=== PATIENT | female | born 1965 | race African-American/Black ===

== ENCOUNTER 2018-12-28 15:17 | Emergency (ER) | payer OTHER ==
[2018-12-28 16:01] LABS: ADD MAN DIFF? NO
[2018-12-28 16:05] LABS: WHITE BLOOD COUNT 7.5 10^3/ul (4.8-10.8)
[2018-12-28 16:05] LABS: BASOPHILS % 0.4 % (0.0-2.0); EOSINOPHILS % 0.4 % (0.0-7.0); HEMOGLOBIN 13.3 g/dl (12.0-16.0); LYMPHOCYTES # 2.5 10^3/ul (0.8-2.9); LYMPHOCYTES % 33.9 % (15.0-51.0); MEAN CORPUSCULAR HEMOGLOBIN 31.3 pg (29.0-33.0); MEAN CORPUSCULAR HGB CONC 33.3 g/dl (32.0-37.0); MEAN CORPUSCULAR VOLUME 94.1 fl (82.0-101.0); MEAN PLATELET VOLUME 8.9 fl (7.4-10.4); MONOCYTE # 0.6 10^3/ul (0.3-0.9); MONOCYTES % 8.4 % (0.0-11.0); NEUTROPHIL # 4.2 10^3/ul (1.6-7.5); NEUTROPHILS % 56.8 % (39.0-77.0); PLATELET COUNT 262 10^3/UL (140-415); RED BLOOD COUNT 4.25 10^6/ul (4.20-5.40); RED CELL DISTRIBUTION WIDTH 12.2 % (11.5-14.5)
[2018-12-28] MEDS: DIPHENHYDRAMINE 50 MG INJ IV (16:06)
[2018-12-28] MEDS: METOCLOPRAMIDE 10 MG INJ IV (16:06)
[2018-12-28] MEDS: ONDANSETRON 4 MG INJ IV (16:06)
[2018-12-28] MEDS: SOD CHLORIDE 0.9% 1,000 ML IV ×2 (16:12→18:38)
[2018-12-28 16:26] LABS: ANION GAP 10 (5-13); BLOOD UREA NITROGEN 12 mg/dl (7-20); CALCIUM 9.4 mg/dl (8.4-10.2); CARBON DIOXIDE 27 mmol/L (21-31); CHLORIDE 102 mmol/L (97-110); CREATININE 0.71 mg/dl (0.44-1.00); Estimated GFR > 60 mL/min (>60); GLUCOSE 91 mg/dl (70-220); POTASSIUM 3.5 mmol/L (3.5-5.1); SODIUM 139 mmol/L (135-144)
[2018-12-28 16:37] LABS: TROPONIN-I < 0.012 ng/ml (0.000-0.120)
[2018-12-28 17:53] LABS: ADD UMIC YES; UR ASCORBIC ACID 20 mg/dL (NEGATIVE); UR BACTERIA FEW /HPF (NONE SEEN); UR BILIRUBIN (Dip) NEGATIVE (NEGATIVE); UR BLOOD (Dip) NEGATIVE (NEGATIVE); UR CLARITY CLEAR (CLEAR); UR COLOR YELLOW (YELLOW); UR GLUCOSE (Dip) NEGATIVE (NEGATIVE); UR KETONES (Dip) NEGATIVE (NEGATIVE); UR LEUKOCYTE ESTERASE (Dip) TRACE Leu/ul (NEGATIVE); UR MUCUS FEW /HPF (NONE SEEN); UR NITRITE (Dip) NEGATIVE (NEGATIVE); UR RBC 1 /HPF (0-5); UR SPECIFIC GRAVITY (Dip) 1.012 (1.003-1.030); UR SQUAMOUS EPITHELIAL CELL FEW /HPF (FEW); UR TOTAL PROTEIN (Dip) NEGATIVE (NEGATIVE); UR UROBILINOGEN (Dip) 1+ mg/dL (NEGATIVE); UR WBC 2 /HPF (0-5)
== END 2018-12-28 20:33 | disposition home or self-care (01) ==
LOC: E/R 15:17
DX: R51 Headache (principal); Z87.891 Personal history of nicotine dependence
CPT/HCPCS: 36415; 70450; 80048; 81001; 82962; 84484; 85025; 93005; 96374; 96375; 99285-25

== ENCOUNTER 2018-12-29 13:30 | Inpatient (IN) | payer OTHER ==
[2018-12-29] MEDS: SOD CHLORIDE 0.9% 100 ML (16:18)
[2018-12-29] MEDS: IOHEXOL 100 ML (16:18)
[2018-12-29] MEDS: morphine 4 MG/ML VIAL IV (16:27)
[2018-12-29] MEDS: ONDANSETRON 4 MG INJ IV ×3 (16:27→22:40)
[2018-12-29] MEDS: SOD CHLORIDE 0.9% 1,000 ML IV ×2 (16:27→19:11)
[2018-12-29 16:35] LABS: ADD MAN DIFF? NO
[2018-12-29 16:41] LABS: WHITE BLOOD COUNT 7.5 10^3/ul (4.8-10.8)
[2018-12-29 16:41] LABS: BASOPHILS % 0.3 % (0.0-2.0); EOSINOPHILS # 0.1 10^3/ul (0.0-0.5); EOSINOPHILS % 0.9 % (0.0-7.0); HEMATOCRIT 40.7 % (37.0-47.0); HEMOGLOBIN 13.5 g/dl (12.0-16.0); LYMPHOCYTES # 2.8 10^3/ul (0.8-2.9); LYMPHOCYTES % 37.3 % (15.0-51.0); MEAN CORPUSCULAR HEMOGLOBIN 32.4 pg (29.0-33.0); MEAN CORPUSCULAR HGB CONC 33.2 g/dl (32.0-37.0); MEAN CORPUSCULAR VOLUME 97.6 fl (82.0-101.0); MEAN PLATELET VOLUME 9.5 fl (7.4-10.4); MONOCYTE # 0.7 10^3/ul (0.3-0.9); MONOCYTES % 9.1 % (0.0-11.0); NEUTROPHIL # 3.9 10^3/ul (1.6-7.5); NEUTROPHILS % 52.1 % (39.0-77.0); PLATELET COUNT 231 10^3/UL (140-415); RED BLOOD COUNT 4.17 10^6/ul (4.20-5.40); RED CELL DISTRIBUTION WIDTH 12.2 % (11.5-14.5)
[2018-12-29 18:01] LABS: INR 1.09; PT RATIO 1.1
[2018-12-29 18:02] LABS: PARTIAL THROMBOPLASTIN TIME 32.1 Sec (23.0-35.0)
[2018-12-29 18:05] LABS: PROTIME 14.2 Sec (11.9-14.9)
[2018-12-29 18:09] LABS: ANION GAP 6 (5-13); BLOOD UREA NITROGEN 9 mg/dl (7-20); CALCIUM 7.9 mg/dl (8.4-10.2); CARBON DIOXIDE 23 mmol/L (21-31); CHLORIDE 110 mmol/L (97-110); CREATININE 0.55 mg/dl (0.44-1.00); Estimated GFR > 60 mL/min (>60); GLUCOSE 59 mg/dl (70-220); POTASSIUM 3.3 mmol/L (3.5-5.1); SODIUM 139 mmol/L (135-144)
[2018-12-29] MEDS ORDERED: NACL 0.9% 3 ML SYG IV (18:30)
[2018-12-29] MEDS: POTASSIUM CHLORIDE (SR) 20 MEQ TAB PO (19:18)
[2018-12-29] MEDS: OXYCODONE/ACETAMINOPHEN (5/325) TAB PO (19:18)
[2018-12-29] MEDS: ACETAMINOPHEN 325 MG TAB PO (22:44)
[2018-12-29] MEDS: KETOROLAC 15 MG INJ IV (22:48)
[2018-12-30] MEDS ORDERED: ATROPINE 0.4 MG INJ IV (02:30)
[2018-12-30] MEDS ORDERED: ATROPINE 1 MG/10 ML SYRINGE IV (03:00)
[2018-12-30] MEDS: ATROPINE 1 MG/10 ML SYRINGE IV (04:00)
[2018-12-30 05:06] LABS: ADD MAN DIFF? NO
[2018-12-30 05:11] LABS: WHITE BLOOD COUNT 6.9 10^3/ul (4.8-10.8)
[2018-12-30 05:11] LABS: BASOPHILS % 0.3 % (0.0-2.0); EOSINOPHILS % 0.3 % (0.0-7.0); HEMATOCRIT 35.7 % (37.0-47.0); HEMOGLOBIN 11.5 g/dl (12.0-16.0); LYMPHOCYTES % 28.9 % (15.0-51.0); MEAN CORPUSCULAR HEMOGLOBIN 31.3 pg (29.0-33.0); MEAN CORPUSCULAR HGB CONC 32.2 g/dl (32.0-37.0); MEAN CORPUSCULAR VOLUME 97.3 fl (82.0-101.0); MEAN PLATELET VOLUME 9.3 fl (7.4-10.4); MONOCYTE # 0.5 10^3/ul (0.3-0.9); MONOCYTES % 7.2 % (0.0-11.0); NEUTROPHIL # 4.4 10^3/ul (1.6-7.5); PLATELET COUNT 205 10^3/UL (140-415); RED BLOOD COUNT 3.67 10^6/ul (4.20-5.40); RED CELL DISTRIBUTION WIDTH 12.3 % (11.5-14.5)
[2018-12-30 05:33] LABS: CREATINE KINASE 63 IU/L (23-200)
[2018-12-30 05:38] LABS: ALANINE AMINOTRANSFERASE 20 IU/L (13-69); ALBUMIN 3.1 g/dl (3.3-4.9); ALBUMIN/GLOBULIN RATIO 1.06; ALKALINE PHOSPHATASE 67 IU/L (42-121); ANION GAP 8 (5-13); ASPARTATE AMINO TRANSFERASE 19 IU/L (15-46); BILIRUBIN,INDIRECT 0.5 mg/dl (0-1.1); BILIRUBIN,TOTAL 0.5 mg/dl (0.2-1.3); BLOOD UREA NITROGEN 11 mg/dl (7-20); CALCIUM 8.6 mg/dl (8.4-10.2); CARBON DIOXIDE 26 mmol/L (21-31); CHLORIDE 109 mmol/L (97-110); CREATININE 0.63 mg/dl (0.44-1.00); Estimated GFR > 60 mL/min (>60); GLUCOSE 81 mg/dl (70-220); POTASSIUM 4.9 mmol/L (3.5-5.1); SODIUM 143 mmol/L (135-144)
[2018-12-30 05:45] LABS: CK INDEX 1.2; CK-MB 0.77 ng/ml (0.0-2.4); TROPONIN-I < 0.012 ng/ml (0.000-0.120)
[2018-12-30 05:52] LABS: HEMOGLOBIN A1C 5.5 % (0-5.9)
[2018-12-30 06:05] LABS: THYROID STIMULATING HORMONE 0.931 MIU/L (0.465-4.680)
[2018-12-30] MEDS: LIDOCAINE/MYLANTA 40 ML BTL PO (06:07)
[2018-12-30] MEDS: NITROGLYCERIN (SL) 0.4 MG TAB SL ×2 (06:35→06:43)
[2018-12-30] MEDS: morphine 2 MG INJ IV ×2 (07:08→12:59)
[2018-12-30 08:31] LABS: CREATINE KINASE 61 IU/L (23-200)
[2018-12-30 08:40] LABS: CK INDEX 1.2; CK-MB 0.73 ng/ml (0.0-2.4); TROPONIN-I < 0.012 ng/ml (0.000-0.120)
[2018-12-30] MEDS: ACETAMINOPHEN 325 MG TAB PO (10:14)
[2018-12-30 14:46] LABS: CREATINE KINASE 56 IU/L (23-200)
[2018-12-30 15:00] LABS: CK INDEX 1.4; CK-MB 0.81 ng/ml (0.0-2.4); TROPONIN-I < 0.012 ng/ml (0.000-0.120)
[2018-12-30 15:45] LABS: FREE T4 (FREE THYROXINE) 1.05 ng/dl (0.64-1.79)
[2018-12-30] MEDS: KETOROLAC 30 MG INJ IV (16:24)
[2018-12-30] MEDS: NAPROXEN 500 MG TAB PO (21:38)
[2018-12-31] MEDS: PANTOPRAZOLE (EC) 40 MG TAB PO (06:49)
[2018-12-31 07:20] LABS: CHOL/HDL RATIO 2.9 RATIO; HDL CHOLESTEROL 47 mg/dl (37-92); LDL CHOLESTEROL,CALCULATED 82 mg/dl; TRIGLYCERIDES 57 mg/dl (0-149)
[2018-12-31 07:20] LABS: CHOLESTEROL 140 mg/dl (100-200)
[2018-12-31] MEDS: NAPROXEN 500 MG TAB PO ×2 (08:14→20:19)
[2018-12-31 09:56] LABS: AMPHETAMINE/METHAMPHETAMINE Negative (NEGATIVE); BARBITURATES Negative (NEGATIVE); BENZODIAZEPINES Negative (NEGATIVE); CANNABINOIDS Positive (NEGATIVE); COCAINE Negative (NEGATIVE)
[2018-12-31 09:57] LABS: OPIATES Positive (NEGATIVE)
[2018-12-31] MEDS: REGADENOSON 0.4 MG/5 ML SYG (11:37)
[2018-12-31] MEDS ORDERED: POLYETHYLENE GLYCOL 17 GM PACKET PO (19:00)
[2019-01-01] MEDS: PANTOPRAZOLE (EC) 40 MG TAB PO (06:33)
[2019-01-01] MEDS: NAPROXEN 500 MG TAB PO ×2 (09:19→19:35)
[2019-01-01] MEDS: NITROGLYCERIN (SL) 0.4 MG TAB SL (19:35)
[2019-01-02] MEDS: PANTOPRAZOLE (EC) 40 MG TAB PO (06:37)
[2019-01-02] MEDS: NAPROXEN 500 MG TAB PO (09:26)
== END 2019-01-02 15:07 | disposition home or self-care (01) | DRG 312 ==
LOC: FTE 13:30 → TEL 16:33
PROVIDERS: Internal Medicine
DX: R55 Syncope and collapse (principal); R00.1 Bradycardia, unspecified; R51 Headache
CPT/HCPCS: 36415; 70496; 70498; 70551; 78452; 80048; 80053; 80061; 80307; 82550; 82553; 83036; 84439; 84443; 84484; 85025; 85610; 85730; 93005; 93017; 93306; 96374; 96375; 97161; 99285-25; G0378

== ENCOUNTER 2019-01-09 01:32 | Inpatient (IN) | payer OTHER ==
[2019-01-09] MEDS ORDERED: ALBUTEROL/IPRATROPIUM (NEB) 3 ML AMP HHN (02:30)
[2019-01-09] MEDS ORDERED: ONDANSETRON 4 MG INJ IV (02:30)
[2019-01-09] MEDS ORDERED: NACL 0.9% 3 ML SYG IV (02:30)
[2019-01-09] MEDS ORDERED: NITROGLYCERIN (SL) 0.4 MG TAB SL (02:30)
[2019-01-09 03:42] LABS: ADD MAN DIFF? NO
[2019-01-09 04:01] LABS: CREATINE KINASE 48 IU/L (23-200)
[2019-01-09 04:05] LABS: ALANINE AMINOTRANSFERASE 24 IU/L (13-69); ALBUMIN 3.7 g/dl (3.3-4.9); ALBUMIN/GLOBULIN RATIO 1.12; ALKALINE PHOSPHATASE 92 IU/L (42-121); ANION GAP 7 (5-13); ASPARTATE AMINO TRANSFERASE 23 IU/L (15-46); BILIRUBIN,INDIRECT 0.3 mg/dl (0-1.1); BILIRUBIN,TOTAL 0.3 mg/dl (0.2-1.3); BLOOD UREA NITROGEN 16 mg/dl (7-20); CALCIUM 9.4 mg/dl (8.4-10.2); CARBON DIOXIDE 29 mmol/L (21-31); CHLORIDE 105 mmol/L (97-110); CREATININE 0.67 mg/dl (0.44-1.00); Estimated GFR > 60 mL/min (>60); GLUCOSE 106 mg/dl (70-220); MAGNESIUM 1.9 mg/dl (1.7-2.5); POTASSIUM 4.1 mmol/L (3.5-5.1); SODIUM 141 mmol/L (135-144)
[2019-01-09 04:08] LABS: BASOPHILS % 0.3 % (0.0-2.0); EOSINOPHILS # 0.2 10^3/ul (0.0-0.5); HEMATOCRIT 40.2 % (37.0-47.0); HEMOGLOBIN 13.5 g/dl (12.0-16.0); LYMPHOCYTES # 2.4 10^3/ul (0.8-2.9); LYMPHOCYTES % 31.2 % (15.0-51.0); MEAN CORPUSCULAR HEMOGLOBIN 32.1 pg (29.0-33.0); MEAN CORPUSCULAR HGB CONC 33.6 g/dl (32.0-37.0); MEAN CORPUSCULAR VOLUME 95.7 fl (82.0-101.0); MEAN PLATELET VOLUME 9.9 fl (7.4-10.4); MONOCYTE # 0.7 10^3/ul (0.3-0.9); MONOCYTES % 9.3 % (0.0-11.0); NEUTROPHIL # 4.4 10^3/ul (1.6-7.5); NEUTROPHILS % 56.9 % (39.0-77.0); PLATELET COUNT 248 10^3/UL (140-415); RED CELL DISTRIBUTION WIDTH 12.2 % (11.5-14.5)
[2019-01-09 04:08] LABS: WHITE BLOOD COUNT 7.7 10^3/ul (4.8-10.8)
[2019-01-09 04:14] LABS: CK INDEX 0.8; CK-MB 0.38 ng/ml (0.0-2.4); TROPONIN-I < 0.012 ng/ml (0.000-0.120)
[2019-01-09] MEDS: HEPARIN 5,000 UNIT/1 ML VIAL SC ×2 (08:25→21:30)
[2019-01-09 09:11] LABS: CREATINE KINASE 47 IU/L (23-200)
[2019-01-09 09:23] LABS: CK INDEX 0.8; CK-MB 0.39 ng/ml (0.0-2.4); TROPONIN-I < 0.012 ng/ml (0.000-0.120)
[2019-01-10 06:08] LABS: ADD MAN DIFF? NO
[2019-01-10 06:21] LABS: BASOPHILS % 0.3 % (0.0-2.0); EOSINOPHILS # 0.1 10^3/ul (0.0-0.5); HEMATOCRIT 39.1 % (37.0-47.0); LYMPHOCYTES # 2.3 10^3/ul (0.8-2.9); LYMPHOCYTES % 37.5 % (15.0-51.0); MEAN CORPUSCULAR HEMOGLOBIN 31.7 pg (29.0-33.0); MEAN CORPUSCULAR HGB CONC 33.2 g/dl (32.0-37.0); MEAN CORPUSCULAR VOLUME 95.4 fl (82.0-101.0); MEAN PLATELET VOLUME 10.2 fl (7.4-10.4); MONOCYTE # 0.6 10^3/ul (0.3-0.9); PLATELET COUNT 244 10^3/UL (140-415); RED CELL DISTRIBUTION WIDTH 12.2 % (11.5-14.5)
[2019-01-10 06:21] LABS: WHITE BLOOD COUNT 6.1 10^3/ul (4.8-10.8)
[2019-01-10 07:02] LABS: ANION GAP 5 (5-13); BLOOD UREA NITROGEN 15 mg/dl (7-20); CARBON DIOXIDE 30 mmol/L (21-31); CHLORIDE 105 mmol/L (97-110); CREATININE 0.65 mg/dl (0.44-1.00); Estimated GFR > 60 mL/min (>60); GLUCOSE 88 mg/dl (70-220); MAGNESIUM 1.8 mg/dl (1.7-2.5); PHOSPHORUS 4.1 mg/dl (2.5-4.9); POTASSIUM 4.2 mmol/L (3.5-5.1); SODIUM 140 mmol/L (135-144)
[2019-01-10] MEDS: ACETAMINOPHEN 325 MG TAB PO (08:09)
[2019-01-10] MEDS: HEPARIN 5,000 UNIT/1 ML VIAL SC ×2 (08:20→21:06)
[2019-01-10 14:29] LABS: FREE T4 (FREE THYROXINE) 0.93 ng/dl (0.64-1.79)
[2019-01-10 14:35] LABS: FREE T3 4.38 pg/ml (2.77-5.27)
[2019-01-10] MEDS: COSYNTROPIN 0.25 MG INJ IV (17:05)
[2019-01-11] MEDS: TOPIRAMATE 25 MG TAB PO ×3 (00:26→20:08)
[2019-01-11] MEDS: ACETAMINOPHEN 325 MG TAB PO ×2 (00:26→17:49)
[2019-01-11] MEDS: HEPARIN 5,000 UNIT/1 ML VIAL SC ×2 (08:46→20:54)
[2019-01-11 11:26] LABS: UR RBC 0 /HPF (0-5); UR WBC 0 /HPF (0-5)
[2019-01-11 11:27] LABS: UR CLARITY CLEAR (CLEAR); UR COLOR YELLOW (YELLOW); URINE PH (Dip) 8 (5.0-9.0)
[2019-01-11 11:28] LABS: ADD UMIC YES; UR ASCORBIC ACID NEGATIVE (NEGATIVE); UR BILIRUBIN (Dip) NEGATIVE (NEGATIVE); UR BLOOD (Dip) NEGATIVE (NEGATIVE); UR GLUCOSE (Dip) NEGATIVE (NEGATIVE); UR KETONES (Dip) NEGATIVE (NEGATIVE); UR LEUKOCYTE ESTERASE (Dip) NEGATIVE Leu/ul (NEGATIVE); UR NITRITE (Dip) NEGATIVE (NEGATIVE); UR TOTAL PROTEIN (Dip) TRACE mg/dl (NEGATIVE); UR UROBILINOGEN (Dip) NEGATIVE (NEGATIVE)
[2019-01-11 14:00] LABS: TROPONIN-I < 0.012 ng/ml (0.000-0.120)
[2019-01-11] MEDS: KETOROLAC 15 MG INJ IV (17:01)
[2019-01-11] MEDS: HYDROCODONE/APAP (5/325) TAB PO (17:01)
[2019-01-11] MEDS: LEVETIRACETAM 1000 MG (PMX) 100 ML IVPB (20:09)
[2019-01-11] MEDS: LEVETIRACETAM 500 MG TAB PO (20:51)
[2019-01-11 23:37] LABS: AMPHETAMINE/METHAMPHETAMINE Negative (NEGATIVE); BARBITURATES Negative (NEGATIVE); BENZODIAZEPINES Negative (NEGATIVE); CANNABINOIDS Positive (NEGATIVE); COCAINE Negative (NEGATIVE); OPIATES Negative (NEGATIVE)
[2019-01-12 06:29] LABS: ADD MAN DIFF? NO
[2019-01-12 06:33] LABS: WHITE BLOOD COUNT 6.4 10^3/ul (4.8-10.8)
[2019-01-12 06:33] LABS: BASOPHILS % 0.5 % (0.0-2.0); EOSINOPHILS # 0.2 10^3/ul (0.0-0.5); EOSINOPHILS % 2.4 % (0.0-7.0); HEMATOCRIT 38.8 % (37.0-47.0); HEMOGLOBIN 12.6 g/dl (12.0-16.0); LYMPHOCYTES # 2.3 10^3/ul (0.8-2.9); LYMPHOCYTES % 36.9 % (15.0-51.0); MEAN CORPUSCULAR HEMOGLOBIN 31.5 pg (29.0-33.0); MEAN CORPUSCULAR HGB CONC 32.5 g/dl (32.0-37.0); MONOCYTE # 0.6 10^3/ul (0.3-0.9); MONOCYTES % 9.8 % (0.0-11.0); NEUTROPHIL # 3.2 10^3/ul (1.6-7.5); NEUTROPHILS % 50.2 % (39.0-77.0); PLATELET COUNT 243 10^3/UL (140-415); RED CELL DISTRIBUTION WIDTH 12.4 % (11.5-14.5)
[2019-01-12 07:05] LABS: ANION GAP 7 (5-13); BLOOD UREA NITROGEN 17 mg/dl (7-20); CALCIUM 9.1 mg/dl (8.4-10.2); CARBON DIOXIDE 26 mmol/L (21-31); CHLORIDE 107 mmol/L (97-110); CREATININE 0.83 mg/dl (0.44-1.00); Estimated GFR > 60 mL/min (>60); GLUCOSE 80 mg/dl (70-220); POTASSIUM 4.7 mmol/L (3.5-5.1); SODIUM 140 mmol/L (135-144)
[2019-01-12] MEDS: TOPIRAMATE 25 MG TAB PO ×2 (09:06→20:18)
[2019-01-12] MEDS: LEVETIRACETAM 500 MG TAB PO (09:06)
[2019-01-12] MEDS: KETOROLAC 15 MG INJ IV ×2 (09:06→17:58)
[2019-01-12] MEDS: HEPARIN 5,000 UNIT/1 ML VIAL SC ×2 (09:28→20:25)
[2019-01-13] MEDS: SOD CHLORIDE 0.9% 250 ML IV ×2 (05:20→06:41)
[2019-01-13 05:48] LABS: ADD MAN DIFF? NO
[2019-01-13 05:54] LABS: BASOPHILS % 0.3 % (0.0-2.0); EOSINOPHILS # 0.1 10^3/ul (0.0-0.5); HEMATOCRIT 37.4 % (37.0-47.0); HEMOGLOBIN 12.2 g/dl (12.0-16.0); LYMPHOCYTES # 2.2 10^3/ul (0.8-2.9); LYMPHOCYTES % 34.1 % (15.0-51.0); MEAN CORPUSCULAR HEMOGLOBIN 31.6 pg (29.0-33.0); MEAN CORPUSCULAR HGB CONC 32.6 g/dl (32.0-37.0); MEAN CORPUSCULAR VOLUME 96.9 fl (82.0-101.0); MEAN PLATELET VOLUME 9.7 fl (7.4-10.4); MONOCYTE # 0.6 10^3/ul (0.3-0.9); MONOCYTES % 8.7 % (0.0-11.0); NEUTROPHIL # 3.5 10^3/ul (1.6-7.5); NEUTROPHILS % 54.6 % (39.0-77.0); PLATELET COUNT 244 10^3/UL (140-415); RED BLOOD COUNT 3.86 10^6/ul (4.20-5.40); RED CELL DISTRIBUTION WIDTH 12.4 % (11.5-14.5)
[2019-01-13 05:54] LABS: WHITE BLOOD COUNT 6.5 10^3/ul (4.8-10.8)
[2019-01-13 06:24] LABS: ANION GAP 8 (5-13); BLOOD UREA NITROGEN 22 mg/dl (7-20); CALCIUM 9.1 mg/dl (8.4-10.2); CARBON DIOXIDE 25 mmol/L (21-31); CHLORIDE 107 mmol/L (97-110); CREATININE 0.83 mg/dl (0.44-1.00); Estimated GFR > 60 mL/min (>60); GLUCOSE 79 mg/dl (70-220); POTASSIUM 4.3 mmol/L (3.5-5.1); SODIUM 140 mmol/L (135-144)
[2019-01-13] MEDS: TOPIRAMATE 25 MG TAB PO ×2 (08:05→20:48)
[2019-01-13] MEDS: HEPARIN 5,000 UNIT/1 ML VIAL SC ×2 (08:14→21:04)
[2019-01-14 05:38] LABS: ADD MAN DIFF? NO
[2019-01-14 05:44] LABS: WHITE BLOOD COUNT 6.5 10^3/ul (4.8-10.8)
[2019-01-14 05:44] LABS: BASOPHILS % 0.2 % (0.0-2.0); EOSINOPHILS # 0.2 10^3/ul (0.0-0.5); EOSINOPHILS % 3.1 % (0.0-7.0); HEMATOCRIT 41.4 % (37.0-47.0); HEMOGLOBIN 13.6 g/dl (12.0-16.0); LYMPHOCYTES # 2.2 10^3/ul (0.8-2.9); LYMPHOCYTES % 34.2 % (15.0-51.0); MEAN CORPUSCULAR HEMOGLOBIN 31.5 pg (29.0-33.0); MEAN CORPUSCULAR HGB CONC 32.9 g/dl (32.0-37.0); MEAN CORPUSCULAR VOLUME 95.8 fl (82.0-101.0); MEAN PLATELET VOLUME 9.3 fl (7.4-10.4); MONOCYTE # 0.7 10^3/ul (0.3-0.9); NEUTROPHIL # 3.3 10^3/ul (1.6-7.5); PLATELET COUNT 253 10^3/UL (140-415); RED BLOOD COUNT 4.32 10^6/ul (4.20-5.40); RED CELL DISTRIBUTION WIDTH 12.4 % (11.5-14.5)
[2019-01-14 06:09] LABS: ANION GAP 8 (5-13); BLOOD UREA NITROGEN 17 mg/dl (7-20); CALCIUM 9.7 mg/dl (8.4-10.2); CARBON DIOXIDE 28 mmol/L (21-31); CHLORIDE 104 mmol/L (97-110); CREATININE 0.86 mg/dl (0.44-1.00); Estimated GFR > 60 mL/min (>60); GLUCOSE 85 mg/dl (70-220); POTASSIUM 4.8 mmol/L (3.5-5.1); SODIUM 140 mmol/L (135-144)
[2019-01-14] MEDS: TOPIRAMATE 25 MG TAB PO (08:35)
[2019-01-14] MEDS: HEPARIN 5,000 UNIT/1 ML VIAL SC (08:44)
[2019-01-14 11:11] LABS: ALDOSTERONE 4 ng/dL; ALDOSTERONE 7 ng/dL; ALDOSTERONE <1 ng/dL
== END 2019-01-14 17:25 | disposition home or self-care (01) | DRG 310 ==
LOC: 6WM 01:32
DX: R00.1 Bradycardia, unspecified (principal); R55 Syncope and collapse; G43.909 Migraine, unspecified, not intractable, without status migrainosus
CPT/HCPCS: 70552; 80048; 80053; 80307; 81001; 82088; 82533; 82550; 82553; 82962; 83735; 84100; 84439; 84443; 84481; 84484; 85025; 87086; 93005; 95819; 99217